=== PATIENT | female | born 1950 | race Caucasian/White ===

== ENCOUNTER 2019-05-02 08:19 | Day surgery (SDC) | payer OTHER ==
[2019-04-27 12:06] VITALS: BMI 35.9
[~2019-05-02 08:19] MED LIST: LACTATED RINGERS SOLUTION 1,000 ML IV SCH; ONDANSETRON 4 MG/2 ML VIAL IVPUSH PRN
[2019-05-02] MEDS ORDERED: PROPOFOL 20 ML ONE (10:27)
[2019-05-02 11:32] VITALS: BP 133/82; PULSE 76; TEMP 98.2
== END 2019-05-02 11:36 | disposition home or self-care (01) ==
LOC: FASU-ENDO 08:19
PROVIDERS: ATTEND Internal Medicine Gastroenterology
PROC: 0DJD8ZZ Inspection of Lower Intestinal Tract, Via Natural or Artificial Opening Endoscopic (ICD-10-PCS; principal; 2019-05-02 10:36)
DX: Z12.11 Encounter for screening for malignant neoplasm of colon (principal); Z83.71 Family history of colonic polyps; K57.30 Diverticulosis of large intestine without perforation or abscess without bleeding
CPT/HCPCS: 82962